=== PATIENT | male | born 1990 | race African-American/Black ===

== ENCOUNTER 2017-11-23 01:23 | Emergency (ER) | payer MEDICAID, OTHER ==
[~2017-11-23] VITALS: Ht 172.7 cm; Wt 79.4 kg
[2017-11-23 02:25] VITALS: BP 138/85
--- NOTE | 2017-11-23 02:34 | NUR ---
DR. LÓPEZ AT BEDSIDE FOR EVAL.
== END 2017-11-23 02:57 | disposition home or self-care (01) ==
LOC: ER 01:23
DX: L02.31 Cutaneous abscess of buttock (principal)
CPT/HCPCS: A4606; Z7610